=== PATIENT | male | born 1995 | race Caucasian/White ===

== ENCOUNTER → 2019-09-27 | Day surgery (SDC) | payer BC ==
[~2019-09-27] VITALS: Ht 185.4 cm; Wt 99.8 kg
--- NOTE | ~2019-09-27 | PROC NOTE ---
[place], [place] PROCEDURE NOTE NAME: LINDSEY MCNEAL UNIT #: [id number] ROOM: DOCTOR: BELLA YANCEY,SHAHRZAD BIRTHDATE: [birth year] DOS: 09/27/2019 PROCEDURE: Colonoscopy. INDICATION: Hematochezia. CONSENT: An informed consent was obtained from the patient after indication of procedure, the alternatives and potential complications were explained to him. PROCEDURE MEDICATION: Sedation was administered by Anesthesiology Department. SCOPE USED: Olympus diagnostic pediatric colonoscope variable stiffness GIF-180, depth of insertion was to the cecum, which was identified by the usual landmarks, appendiceal orifice, ileocecal valve and triangular fold, in addition to transillumination in the right lower quadrant. FINDINGS: After adequate sedation, the patient was placed in left lateral decubitus position. Rectal examination showed a diminished sphincter tone and no external hemorrhoids. Scope was introduced into the rectum, then advanced to the cecum with no difficulty. The prep was adequate. The colon mucosa appeared normal with no evidence of polyps, diverticula or ulcerations. Retroflexed views in the rectum showed small grade 1 internal hemorrhoids. Scope was then withdrawn after the rectum was decompressed. The patient tolerated the procedure well. IMPRESSION: 1. Normal colon mucosa. 2. Small internal hemorrhoids. PLAN: There is no need for further GI workup at this time. The patient was advised to use [id number] hemorrhoidal ointments. Office followup will be scheduled p.r.n. SHAHRZAD BLANCO MD CM:PROCNOTE:PROCEDURE NOTE 6 SHAHRZAD BLANCO MD
[2019-09-27 08:00] VITALS: BP 123/74
[2019-09-27 09:14] VITALS: BP 111/59
[2019-09-27 09:30] VITALS: BP 126/81
[2019-09-27 09:43] VITALS: BP 117/72
== END | disposition home or self-care (01) ==
LOC: SDC 09-24 08:00
DX: K62.5 Hemorrhage of anus and rectum (principal); K64.0 First degree hemorrhoids; E66.01 Morbid (severe) obesity due to excess calories; Z68.29 Body mass index [BMI] 29.0-29.9, adult; Z98.890 Other specified postprocedural states